=== PATIENT | female | born 1980 | race Asian ===

== ENCOUNTER 2019-11-25 19:24 | Emergency (ER) | payer BC ==
[~2019-11-25] VITALS: Ht 165.1 cm; Wt 81.6 kg
[2019-11-25 19:38] VITALS: Ht 165.1 cm; Wt 81.6 kg
[2019-11-25 20:30] LABS: BASOPHIL % 1.4 % (0-2); PLATELET COUNT 333 x10^3mcL (130-400); RED CELL DISTRIBUTION WIDTH 12.4 % (11.5-14.5)
[2019-11-25 20:39] LABS: CALCIUM 9.5 mg/dL (8.5-10.1); CARBON DIOXIDE 28.9 mmol/L (21-32); CHLORIDE SERUM 103 mmol/L (98-107); GFR1 > 60 mL/min; GLUCOSE SERUM 101 mg/dL (74-106); POTASSIUM SERUM 3.8 mmol/L (3.5-5.1); SODIUM SERUM 140 mmol/L (136-145)
[2019-11-25 20:43] LABS: ALBUMIN 3.9 g/dL (3.4-5.0); ALKALINE PHOSPHATASE 84 U/L (46-116); ALT/SGPT 26 U/L (14-59); AST/SGOT 14 U/L (15-37); BILIRUBIN TOTAL 0.23 mg/dL (0.20-1.00); TOTAL PROTEIN, SERUM 7.7 g/dL (6.4-8.2)
[2019-11-25 22:05] VITALS: BP 99/71
== END 2019-11-25 22:12 | disposition home or self-care (01) ==
LOC: ED 19:24
DX: R07.89 Other chest pain (principal); J45.909 Unspecified asthma, uncomplicated
CPT/HCPCS: 36415; Q0092